=== PATIENT | female | born 1960 | race Caucasian/White ===

== ENCOUNTER 2019-03-04 06:29 | Day surgery (SDC) | payer OTHER ==
[2019-03-03 15:04] LABS: Absolute Lymphocytes (CBC) 1.3 K/uL (0.7-4.9); Hematocrit 36.9 % (36.0-45.0); MPV 9.4 fL (7.6-11.3); RBC Red Blood Cell Count 3.95 M/uL (3.86-4.86)
--- NOTE | 2019-03-03 21:06 | PREOPHP ---
Date of Admission: 03/03/2019 History Of Present Illness: The patient is a 58-year-old , female, 2, para 2-0-0-2, who is admitted for evaluation of postmenopausal bleeding. Attempted endometrial biopsy in the office was not successful, so we will perform a hysteroscopy and D and C for evaluation of uterin e endometrium. She has been on hormone replacement therapy and various forms, but has continued to h ave some intermittent bleeding. She has a normal Pap smear and normal ultrasound with possibility of small fibroids because of the heterogeneous nature of the uterus. Past Medical History: Includes 2 prior vaginal deliveries, prior day surgery on the right thumb, bee n diagnosed with diverticulitis previously. Current Medications: Include estradiol patch and Prometrium. Allergies: SHE HAS NO KNOWN ALLERGIES. Social History: Does not smoke. Family History: Noncontributory. Review of Systems: She reports no recent cough, cold, fever, or chills. No recent nausea or vomiting. No breast knots or lumps. No bowel or bladder issues. Physical Examination: General: female, in no apparent distress. Neck: Supple without adenopathy or thyromegaly. Lungs: Clear. Cardiac: Regular rate and rhythm without murmurs. Breasts: Not examined. Abdomen: Nontender without organomegaly or splenomegaly. Pelvic: Normal female external genitalia. Vaginal wall is pink, rugated. Cervix multiparous. Bima nual, no abnormalities. Extremities: No cyanosis, clubbing, or edema. Impression: Postmenopausal bleeding. Plan: The patient will undergo hysteroscopy, D and C. Risks and benefits are discussed and she has signed operative permit in my presence. NEDA/ANAHI Voice ID: [id number]
--- OUTSIDE RECORDS SUMMARY | 2019-03-04 06:32 | XMS REPORT ---
:1960 [facility] Address [address] [place] [address] Dr. Porter [address] [place] [id number] Care Team Providers Name Role Phone Unavailable Unavailable Unavailable Problems This patient has no known problems. Allergies, Adverse Reactions, Alerts This patient has no known allergies or adverse reactions. Medications This patient has no known medications. Encounters Start End Encounter Admission Attending Care Care Encounter Date/Time Date/Time Type Type Clinicians Facility Department ID 2017-01-23 Inpatient [facility] MED [id number] 09:36:00
[2019-03-04] MEDS ORDERED: Ringers Lactate 1,000 ML IV ONE (06:43)
[2019-03-04] MEDS ORDERED: NA CHLORIDE 0.9% 1,000 ML ONE (07:03)
[2019-03-04] MEDS ORDERED: SILVER NITRATE 1 APPL TOP ONE (07:03)
[2019-03-04] MEDS ORDERED: LIDOCAINE 1% W/EPI 1:100,000 MDV 20 ML VIAL ONE (07:03)
[2019-03-04] MEDS ORDERED: FENTANYL CITR 100 MCG/2 ML ONE (07:04)
[2019-03-04] MEDS ORDERED: PROPOFOL 200 MG/20 ML VIAL IV ONE (07:05)
[2019-03-04] MEDS ORDERED: LIDOCAINE 2% MPF 5 ML VIAL ONE (07:05)
[2019-03-04] MEDS ORDERED: dexAMETHasone 10 MG/ML VIAL ONE (07:05)
[2019-03-04] MEDS ORDERED: MIDAZOLAM HCL 2 MG/2 ML INJ ONE (07:05)
[2019-03-04] MEDS: DOXYCYCLINE 200 MG in NA CHLORIDE 0.9% 250 ML IVPB ONE ×2 (07:27→07:33)
[2019-03-04] MEDS ORDERED: KETOROLAC 30 MG/ML INJ ONE (07:39)
[2019-03-04] MEDS ORDERED: MEPERIDINE HCL 25 MG/0.5 ML ONE ×2 (08:05→08:09)
[2019-03-04] MEDS: MORPHINE 4 MG/ML SYR ONE ×2 (08:17→08:22)
[2019-03-04 08:21] VITALS: O2SAT 98
[2019-03-04] MEDS: HYDROMORPHONE HCL 1 MG/ML INJ ONE ×2 (08:25→08:30)
[2019-03-04] MEDS ORDERED: ONDANSETRON 4 MG/2 ML VIAL ONE (09:25)
[2019-03-04] MEDS ORDERED: ONDANSETRON 4 MG/2 ML VIAL IV ONE (09:27)
[2019-03-04] MEDS ORDERED: PROMETHAZINE 25 MG/ML VIAL ONE (09:50)
[2019-03-04] MEDS ORDERED: PROMETHAZINE 25 MG/ML VIAL IV ONE (09:53)
[2019-03-04 10:15] VITALS: BP 117/75; TEMP 97.5
--- NOTE | 2019-03-04 13:01 | OP ---
Surgeon: Damien Greco MD Anesthesiologist: Sia and Dr. Aden Cabral. Preoperative Diagnosis: Postmenopausal bleeding. Postoperative Diagnoses: Postmenopausal bleeding, probable endometrial polyp. Procedure: Hysteroscopy and dilatation and curettage. Description Of Procedure: After satisfactory level of general anesthesia was obtained, the patient w as prepped and draped in the usual fashion for vaginal surgery and high leg holders. Cervix was visu alized and grasped with a single tooth tenaculum and dilated to accept the hysteroscope. Visualizati on of the endometrium revealed possible arcuate uterus with possible endometrial polyp on the anterio r wall. Hysteroscope removed. Curettage of the endometrium performed, productive of minimal tissue. Hysteroscopy reperformed. This tissue was gone and was collected at that time, to be sent for biops y. Patient was awakened and taken to recovery room in satisfactory condition. Estimated blood loss less than 2 mL. NEDA/ANAHI Voice ID: [id number] Report ID: [id number]
--- NOTE | 2019-03-04 13:15 | DS ---
Date of Discharge: 03/04/2019 Final Hospital Discharge Diagnosis: Postmenopausal bleeding. Complications: None. Procedures: Hysteroscopy, dilatation and curettage, uterine and endometrium. Hospital Course: Patient is 58-year-old female, admitted with history of postmenopausal bl eeding with inability to perform endometrial biopsy in the office. Hysteroscopy and D and C was perf ormed with probable endometrial polyp removed. She was dismissed with tramadol 50 mg 5 tablets for p ain, to be seen back in my office in approximately 2 weeks with usual post D and C activity instructi ons. Other lab work included a hemoglobin and hematocrit of 12.4 and 36.9. NEDA/ANAHI Voice ID: [id number] Report ID: [id number]
== END 2019-03-04 10:16 | disposition home or self-care (01) ==
LOC: OR 06:29
PROVIDERS: ATTEND Specialist
PROC: 0UJD8ZZ Inspection of Uterus and Cervix, Via Natural or Artificial Opening Endoscopic (ICD-10-PCS; 2019-03-04)
PROC: 0UDB7ZX Extraction of Endometrium, Via Natural or Artificial Opening, Diagnostic (ICD-10-PCS; principal; 2019-03-04 07:30)
DX: N95.0 Postmenopausal bleeding (principal)
CPT/HCPCS: 85025; 36415; 88305; 58558; J2704; J2550 ×2; J2250; J3010; J1100; J2175 ×2; J1170; J7120; J7030 ×2; J2405 ×2